=== PATIENT | male | born 1975 | race Caucasian/White ===

== ENCOUNTER 2017-09-11 14:48 | Emergency (ER) | payer MEDICAID ==
[~2017-09-11] VITALS: Ht 172.7 cm; Wt 86.9 kg
[~2017-09-11 14:48] MED LIST: HYDR-569 PO; PHEN-890 PO
[2017-09-11 15:05] VITALS: BP 161/94
[2017-09-11] MEDS ORDERED: ibuprofen tablet 400 MG TABLET PO ONE (15:20)
[2017-09-11] MEDS ORDERED: penicillin V potassium 500mg tablet PO ONE (15:20)
[2017-09-11] MEDS ORDERED: IBUP-1985 PO (15:23)
[2017-09-11] MEDS ORDERED: PENI500T2 PO (15:23)
== END 2017-09-11 15:34 | disposition home or self-care (01) ==
LOC: ER 14:49
DX: K08.89 Other specified disorders of teeth and supporting structures (principal); R50.9 Fever, unspecified; Z87.891 Personal history of nicotine dependence; Z79.899 Other long term (current) drug therapy
CPT/HCPCS: 99283